=== PATIENT | male | born 1970 | race Two or more races ===

== ENCOUNTER 2022-01-15 12:20 | Inpatient (IN) | payer MEDICAID ==
[~2022-01-15] VITALS: Ht 180.3 cm; Wt 151.5 kg
--- NOTE | 2022-01-15 12:30 | NUR ---
BIBRA78 HOME FOR NOTED SEIZURE LIKE ACTIVITY BY BROTHER 20 MINS CONSTRUCTION CONTROLLER. +ORAL TRAUMA, +INCONTENENCE. BG 114 CONSTRUCTION CONTROLLER
--- NOTE | 2022-01-15 12:37 | NUR ---
AT [facility] JANUSZ FLOYDAL
--- NOTE | 2022-01-15 12:48 | NUR ---
ekg performed by emt
--- NOTE | 2022-01-15 12:48 | NUR ---
recyclable products sorter at bedside
[2022-01-15] MEDS ORDERED: POTA-88 PO (12:54)
[2022-01-15] MEDS ORDERED: FURO40TA5 PO (12:54)
[2022-01-15] MEDS ORDERED: LOSA25TA27 PO (12:54)
[2022-01-15] MEDS ORDERED: CARV12.52 PO (12:54)
[2022-01-15] MEDS ORDERED: SPIR25TA6 PO (12:54)
[2022-01-15 12:58] LABS: BASOPHILS # (AUTO) 0.1 K/uL (0.0-0.2); BASOPHILS % (AUTO) 1.1 % (0.0-2.0); EOSINOPHILS % (AUTO) 1.5 % (0.0-6.0); HEMATOCRIT 42 % (39-51); HEMOGLOBIN 14.5 g/dL (13.5-17.5); LYMPHOCYTES # (AUTO) 0.7 K/uL (0.8-4.8); LYMPHOCYTES % (AUTO) 10.8 % (20.0-44.0); MEAN CORPUSCULAR HGB CONC 35 g/dl (31.0-36.0); MEAN CORPUSCULAR VOLUME 108 fL (80-96); MONOCYTES % (AUTO) 14.4 % (2.0-12.0); NEUTROPHILS # (AUTO) 4.9 K/uL (1.8-8.9); NEUTROPHILS % (AUTO) 72.2 % (43.0-81.0); PLATELET COUNT (AUTO) 128 K/uL (150-450); RED BLOOD CELL COUNT(AUTO) 3.88 MIL/uL (4.5-6.0); WHITE BLOOD COUNT (AUTO) 6.8 K/uL (4.3-11.0)
[2022-01-15 13:17] LABS: CALCIUM, SERUM 8.5 mg/dL (8.5-10.1); CARBON DIOXIDE 28 mmol/L (21-32); CHLORIDE 97 mmol/L (98-107); CREATININE 1.2 mg/dL (0.6-1.3); GLUCOSE 106 mg/dL (74-106); POTASSIUM 3.8 mmol/L (3.5-5.1); SODIUM SERUM 136 mmol/L (136-145); UREA NITROGEN, BLOOD 8 mg/dL (7-18)
[2022-01-15 13:20] LABS: ALANINE AMINOTRANSFERASE 93 U/L (12-78); ALBUMIN 3.4 g/dL (3.4-5.0); ALKALINE PHOSPHATASE 94 U/L (46-116); ASPARTATE AMINOTRANSFERASE 134 U/L (15-37); BILIRUBIN,DIRECT 1.2 mg/dL (0.0-0.2); BILIRUBIN,TOTAL 2.9 mg/dL (0.2-1.0)
[2022-01-15 13:21] LABS: TOTAL PROTEIN, SERUM 7.6 g/dL (6.4-8.2)
[2022-01-15] MEDS ORDERED: FUROSEMIDE 20 MG/2 ML VIAL IV ONE (14:00)
[2022-01-15] MEDS ORDERED: LORAZEPAM INJ 2 MG/ML VIAL IV ONE (14:00)
--- NOTE | 2022-01-15 14:00 | NUR ---
IV LINE ACCIDENTALY PULLED OUT BY PATIENT
--- NOTE | 2022-01-15 14:01 | NUR ---
BG = 108
[2022-01-15] MEDS ORDERED: ACETAMINOPHEN 325 MG TABLET PO PRN (14:30)
[2022-01-15] MEDS ORDERED: Z GUARD REMEDY 4 OZ OINT TP PRN (14:30)
[2022-01-15] MEDS ORDERED: ONDANSETRON HCL/PF 4 MG/2 ML VIAL IVP PRN (14:30)
[2022-01-15] MEDS ORDERED: IV NS 0.9% 1,000 ML IV PRN (14:30)
--- NOTE | 2022-01-15 14:42 | NUR ---
COVID SWAB TAKEN SENT TO LAB
[2022-01-15] MEDS ORDERED: FUROSEMIDE 20 MG/2 ML VIAL ONE (14:46)
[2022-01-15] MEDS ORDERED: LORAZEPAM INJ 2 MG/ML VIAL ONE (14:47)
--- NOTE | 2022-01-15 15:19 | NUR ---
GOT BED ASSIGNMENT 326-1 PENDING COVID RESULT.
--- NOTE | 2022-01-15 16:32 | NUR ---
REPORT GIVEN TO ANGELO MARCUM
[2022-01-15] MEDS ORDERED: FUROSEMIDE 40 MG TABLET PO SCH (17:00)
[2022-01-15] MEDS ORDERED: ENOXAPARIN SODIUM 40 MG/0.4 ML DISP.SYRIN SQ SCH (17:30)
--- NOTE | 2022-01-15 17:57 | NUR ---
MOVED TO ROOM ASSIGNED
[2022-01-15] MEDS: FUROSEMIDE 40 MG/4 ML VIAL IV SCH (18:15)
--- NOTE | 2022-01-15 19:20 | NUR ---
MERCHANDISER SEASONAL OPENING NOTES RECEIVED PT, SITTING IN BED. A/O X4. ABLE TO MAKE NEEDS KNOWN. ON O2 2LPM VIA NC WITH MILD SOB ON EXERTION. IV ACCESS NOTED ON LAC G#20 INTACT AND PATENT. ON TELE MONITOR WITH CURRENT READING OF SR WITH BBB'S AND V-PACING, HR 97, NO C/O CARDIAC DISTRESS VOICED AT THIS TIME. SEIZURE PRECAUTIONS IMPLEMENTED: PADDED RAILS, SETUP SUCTIONING. SAFETY PRECAUTIONS IMPLEMENTED: BED IN LOWEST LOCKED POSITION, SIDE RAILS UP X3 AND PADDED, BED ALARM ON, CALL LIGHT AND TRAY TABLE PLACED WITHIN EASY REACH OF PT. WILL CONTINUE TO MONITOR AND ASSIST.
--- NOTE | 2022-01-15 19:23 | NUR ---
TELE- ORE MIXER NOTES PT ADMITTED TO UNIT VIA [facility] AT 1745 WITH DIAGNOSIS OF POSSIBLE SEIZURE. PT IS A/O X4. ABLE TO MAKE NEEDS KNOWN WITH C/O OF MILD SOB ON EXERTION, PT PLACED ON 02 VIA N/C AT 2LPM WITH RELIEF. PT ORIENTED TO STAFF AND ROOM. V/S TAKEN AND RECORDED. PHOTOS OF SKIN ISSUES TAKEN AND FILED ON HIS CHART. IV ACCESS NOTED ON LAC G#20 INTACT AND PATENT. PT PLACED ON EXTERNAL CORPORATE TRAVEL AGENT WITH CURRENT READING OF SR WITH BBB'S AND V-PACING, HR 97, NO C/O CARDIAC DISTRESS VOICED AT THIS TIME. LUNGS CLEAR ON AUSCULTATION. ABDOMEN SOFT, NON-TENDER WITH POSITIVE BOWEL SOUNDS PRESENT ON FOUR QUADRANTS. SEIZURE AND ALL SAFETY PRECAUTIONS IMPLEMENTED: BED IN LOWEST LOCKED POSITION, SIDE RAILS UP X2 AND PADDED, CALL LIGHT AND TRAY TABLE PLACED WITHIN W/I EASY REACH OF PT. ENDORSE FABIAN TO CRYSTALIZER TENDER JOSSUE HINDS.
[2022-01-15 20:00] VITALS: BP 154/93
[2022-01-15] MEDS: CARVEDILOL 12.5 MG TABLET PO SCH (20:39)
--- NOTE | 2022-01-15 22:00 | NUR ---
RN NOTE PT REQUESTING MEDICATION FOR SLEEP AND ANXIETY. MENTIONS HE TOOK A MEDICATION IN ER EARLIER. ASKED PT FOR ANY HOME MEDICATIONS FOR SLEEP/ANXIETY AND MENTIONS CLONAZEPAM 1-2MG. MEDICATION PLACED IN HOME MEDS LIST. DR MARTINEZ NOTIFIED IF HE WANTS TO ORDER ANY NEW MEDICATION. RESPONDED WITH AN ORDER FOR RESTORIL 15 MG PO QHS PRN.
[2022-01-15] MEDS ORDERED: CLON0.5T4 PO (22:58)
[2022-01-15] MEDS: TEMAZEPAM 15 MG CAPSULE PO PRN (23:43)
[2022-01-16] VITALS: BP 128/79
[2022-01-16 04:00] VITALS: BP 137/87
--- NOTE | 2022-01-16 04:30 | NUR ---
RN NOTE UPON ROUNDING PATIENT STATED THAT HE FEELS DIZZY WHEN HE'S CHANGING POSITION BUT MORE WHEN HE'S STANDING UP, PATIENT STATES IT IS ONLY BRIEF AND GOES AWAY. ORTHOSTATIC BP SUPINE 136/78 HR 90 SITTING 152/83 HR 102 STANDING 147/79 HR 108
[2022-01-16 06:20] LABS: CALCIUM, SERUM 8.2 mg/dL (8.5-10.1); CREATININE 1.1 mg/dL (0.6-1.3); POTASSIUM 3.4 mmol/L (3.5-5.1)
[2022-01-16 06:25] LABS: BASOPHILS # (AUTO) 0.1 K/uL (0.0-0.2); EOSINOPHILS % (AUTO) 1.9 % (0.0-6.0); HEMATOCRIT 41 % (39-51); HEMOGLOBIN 14.1 g/dL (13.5-17.5); LYMPHOCYTES # (AUTO) 1.3 K/uL (0.8-4.8); LYMPHOCYTES % (AUTO) 17.8 % (20.0-44.0); MEAN CORPUSCULAR HGB CONC 35 g/dl (31.0-36.0); MEAN CORPUSCULAR VOLUME 108 fL (80-96); MONOCYTES # (AUTO) 1.3 K/uL (0.1-1.30); MONOCYTES % (AUTO) 17.2 % (2.0-12.0); NEUTROPHILS # (AUTO) 4.7 K/uL (1.8-8.9); NEUTROPHILS % (AUTO) 62.1 % (43.0-81.0); PLATELET COUNT (AUTO) 123 K/uL (150-450); RED BLOOD CELL COUNT(AUTO) 3.75 MIL/uL (4.5-6.0); WHITE BLOOD COUNT (AUTO) 7.5 K/uL (4.3-11.0)
--- NOTE | 2022-01-16 07:25 | NUR ---
CLAIM ANALYST CLOSING NOTES PT LYING IN BED, ASLEEP AT THIS TMIE. A/O X4. ABLE TO MAKE NEEDS KNOWN. STABLE ON O2 2LPM VIA NC WITH MILD SOB ON EXERTION. IV ACCESS NOTED ON LAC G#20 INTACT AND PATENT. ON TELE MONITOR WITH CURRENT READING OF SR WITH V-PACING, HR 130, NO C/O CARDIAC DISTRESS VOICED AT THIS TIME. PT ASKED FOR SLEEP AND ANTI-ANXIETY MEDICATION. MD NOTIFIED AND ORDERED RESTORIL 15 MG PO QHS PRN. PT TESTED NEGATIVE FOR ORTHOSTATIC HYPOTENSION. ALL CARE PROVIDED AND ADMINISTERED MEDICATIONS TOLERATED WELL. SEIZURE PRECAUTIONS MAINTAINED: PADDED RAILS, SETUP SUCTIONING. SAFETY PRECAUTIONS MAINTAINED: BED IN LOWEST LOCKED POSITION, SIDE RAILS UP X3 AND PADDED, BED ALARM ON, CALL LIGHT AND TRAY TABLE PLACED WITHIN EASY REACH OF PT. WILL ENDORSE FABIAN TO LADLE REPAIRER NURSE.
--- NOTE | 2022-01-16 07:26 | NUR ---
RN OPENING NOTE RECEIVED PATIENT IN BED AWAKE, A/O X4, VERBALLY RESPONSIVE. NO SIGNS OF ACUTE DISTRESS NOTED. ON O2 @ 3LPM VIA N/C, DENIES SOB. NO CARDIAC DISTRESS NOTED. WITH IV ACCESS ON LEFT AC #2OG, INTACT AND PATENT, SALINE LOCKED. SAFETY MEASURE IN PLACE, BED IN LOWEST AND LOCKED POSITION, SIDE RAILS UP X2, CALL LIGHT PLACED WITHIN EASY REACH. WILL CONTINUE TO MONITOR PATIENT.
--- NOTE | 2022-01-16 07:40 | NUR ---
RN NOTE PATIENT NOTED WITH PSVT, HR @140-150, DR. JUSTIN AWARE, WITH WIN FOR STAT EKG, MALIK OUT.
[2022-01-16 08:00] VITALS: BP_SYST 124; BP_SYST 140; BP_DIAS 70; BP_DIAS 89
[2022-01-16] MEDS: FUROSEMIDE 40 MG/4 ML VIAL IV SCH ×3 (08:24→17:27)
[2022-01-16] MEDS: CARVEDILOL 12.5 MG TABLET PO SCH ×2 (08:28→21:18)
[2022-01-16] MEDS: SPIRONOLACTONE 25 MG TABLET PO SCH (08:28)
--- NOTE | 2022-01-16 08:33 | NUR ---
WOUND CARE CONSULT: PT SITTING UP AT EDGE OF BED AND STATES DOES NOT NEED SKIN ASSESSMENT. PT STATES THAT HE SOMETIMES PICKS AT HIS SKIN AND THAT HE HAS DRY SCABS ONLY. WILL SEE PRN.
--- NOTE | 2022-01-16 08:50 | NUR ---
RN NOTE PATIENT TRANSFERRED TO [facility] RM 119-2. REPORT GIVEN TO JOSSUE ORTIZ. ALL BELONGINGS SENT WITH PATIENT.
--- NOTE | 2022-01-16 08:55 | NUR ---
TELE/[facility] ADMISSION NOTES: RECEIVED PATIENT VIA GURNEY, ALERT, ORIENTED X 4. NO C/O CHEST PAIN OR DISCOMFORT NOTED AT THIS TIME. BREATHING EVEN AND UNLABORED, NO SOB NOTED. ON OXYGEN @ 3L/MIN VIA N/C WITH OXYGEN SATURATION OF 96%. PATIENT WAS PLACED ON TELE MONITOR WITH HR OF 144. PATIENT WAS ASSISTED IN BED AND KEPT COMFORTABLE. BED LOCKED AND IN LOWEST POSITION. CALL LIGHT WITHIN REACH. EXPLAINED THE IMPORTANCE OF USING THE CALL LIGHT WHEN HE NEEDS ASSISTANCE. V/S FOLLOWS: TEMP 97.9, RR 24, BP 148/79. PATIENT WAS NOTED TO HAVE A LEAKING IV SITE ON LEFT UPPER ARM UPON ADMISSION. WILL TRY TO PLACE ANOTHER IV SITE FOR THE PATIENT SINCE HE IS ADMITTED TO TELEMETRY FOR AMIODARONE DRIP. WILL CONTINUE TO MONITOR PATIENT THROUGHOUT SHIFT.
[2022-01-16] MEDS ORDERED: AMIODARONE 150 MG in IV D5W 100 ML IV ONE (09:00)
[2022-01-16] MEDS ORDERED: LOSARTAN POTASSIUM 25 MG TABLET PO SCH (09:00)
[2022-01-16 09:18] LABS: THYROID STIMULATING HORMONE 2.645 uIU/mL (0.358-3.74)
[2022-01-16 09:29] LABS: PHOSPHORUS 4.9 mg/dL (2.5-4.9)
--- NOTE | 2022-01-16 09:56 | NUR ---
CALLED LIVING SUPERVISOR EARLIER AND SENT ANOTHER NURSE TO PLACE IV LINE ON PATIENT'S LEFT HAND # 20 G, IV SITE INTACT, FLUSHES WELL.
--- NOTE | 2022-01-16 10:15 | NUR ---
LOADING DOSE OF AMLODIPINE WAS GIVEN TO THE PATIENT, STAYED WITH THE PATIENT AND HAS NO C/O PAIN OR DISCOMFORT, NO ADVERSE REACTION NOTED
[2022-01-16] MEDS: POTASSIUM CHLORIDE 20 MEQ TAB.PRT.SR PO SCH ×3 (10:20→12:34)
[2022-01-16] MEDS: APIXABAN 5 MG TABLET PO SCH ×2 (10:22→17:28)
[2022-01-16] MEDS: AMIODARONE 450 MG in IV D5W 241 ML IV PRN ×2 (10:34→16:22)
--- NOTE | 2022-01-16 10:34 | NUR ---
AMIODARONE DRIP STARTED FOR THE PATIENT ORDERED. BP 121/58 PULSE 100
[2022-01-16 12:00] VITALS: BP 93/55
--- NOTE | 2022-01-16 12:34 | NUR ---
PATIENT WAS NOTED TO HAVE HIS IV ACCIDENTALLY PULLED OUT. CALLED NURSING COMMERCIAL SALES CONSULTANT FOR ANOTHER IV PLACEMENT.
--- NOTE | 2022-01-16 13:00 | NUR ---
NEW IV SITE WAS PLACED ON PATIENT'S SAME HAND, RIGHT HAND # 20, SECURED IV SITE AND INFORMED PATIENT TO PLEASE USE THE CALL LIGHT WHENEVER HE NEEDS ASSISTANCE. PATIENT AGREED AND UNDERSTOOD.
[2022-01-16 16:00] VITALS: BP 154/79
[2022-01-16] MEDS ORDERED: CARVEDILOL 12.5 MG TABLET PO STA (16:58)
--- NOTE | 2022-01-16 17:00 | NUR ---
[facility] RN NOTE SPOKE WITH DR JUSTIN NOTIFIED THAT PATIENT HAS STILL AFB ON MONITOR HR 155-160 ORDERED COREG 50 MG PO NOW SAND HOLD COZAAR , ORDER CARRIED OUT
[2022-01-16 17:15] LABS: BASOPHILS % (MANUAL) 0 % (0.0-2.0); EOSINOPHILS % (MANUAL) 2 % (0-4); LYMPHOCYTES % (MANUAL) 15 % (16-48); MONOCYTES % (MANUAL) 13 % (0-11.0); NEUTROPHILS % (MANUAL) 70 (42-76)
--- NOTE | 2022-01-16 18:05 | NUR ---
BLADDER SCAN PERFORMED, PATIENT ONLY HAS 60 ML OF RESIDUAL URINE, PATIENT HAS NO C/O URINARY DISCOMFORT AT THIS TIME. WILL CONTINUE TO MONITOR PATIENT. PATIENT ALSO NOTED TO HAVE ST ON TELE MONITOR WITH HR OF 128 WITH OCCASIONAL PACING. PATINE HAS NO C/O CHEST PAIN OR DISCOMFORT.
--- NOTE | 2022-01-16 18:59 | NUR ---
RN [facility] CLOSING NOTES: PATIENT IN BED AWAKE, ALERT ORIENTED X 4. NO C/O PAIN OR DISCOMFORT NOTED AT THIS TIME. ON ST WITH HR OF 122. HOB KEPT SLIGHTLY ELEVATED. ON AMIODARONE DRIP AT 0.5MG/MIN = 20 ML/HR. ON SR IV SITE INTACT ON RIGHT HAND, NO S/S INFILTRATION NOTED. BED LOCKED AND IN LOWEST POSITION. CALL LIGHT WITHIN REACH. NO C/O CHEST PAIN OR DISCOMFORT NOTED THROUGHOUT SHIFT. ALL NEEDS MET AND ANTICIPATED. WILL ENDORSE TO INCOMING SHIFT FOR CONTINUITY OF CARE.
--- NOTE | 2022-01-16 19:30 | NUR ---
PATIENT IN BED AWAKE, ALERT ORIENTED X 4. NO C/O PAIN OR DISCOMFORT NOTED AT THIS TIME. ON TELE MONITOR WITH HR OF 92. HOB KEPT SLIGHTLY ELEVATED. ON AMIODARONE DRIP AT 0.5MG/MIN = 20 ML/HR. ON SR IV SITE INTACT ON RIGHT HAND. WITH URINAL AT BEDSIDE. SAFETY MEASURES IN PLACE. BED LOCKED AND IN LOWEST POSITION. CALL LIGHT WITHIN REACH. WILL CONTINUE PLAN OF CARE.
[2022-01-16 20:00] VITALS: BP 140/61
[2022-01-16] MEDS: TEMAZEPAM 15 MG CAPSULE PO PRN (22:27)
[2022-01-17] VITALS: BP 114/87
[2022-01-17] MEDS: AMIODARONE 450 MG in IV D5W 241 ML IV PRN (02:37)
[2022-01-17 04:00] VITALS: BP 127/79
--- NOTE | 2022-01-17 06:45 | NUR ---
PATIENT IN BED ASLEEP, A/OX4. WITH NC AT 3LPM, TOLERATING WELL. NO RESPIRATORY DISTRESS NOTED, NO SIGNS OF PAIN/DISCOMFORT. IV SITE ON RT HAND G#20, PATENT AND FLUSHING WELL. INFUSING AMIODARONE 0.5MG PER MIN. STARTED AT 0500 ON 01/16/2022 18 HRS WILL END AT 11AM ON 01/17/2022. NO S/S OF INFILTRATION. DUE MEDS AND PRN MEDS GIVEN ORDERED. NEEDS ATTENDED. ALL SAFETY MEASURES MAINTAINED. HOB SLIGHTLY ELEVATED. BED LOCKED AND IN LOWEST POSITION. CALL LIGHT WITHIN REACH, SIDE RAILS UP X2. BED ALARM ON. WILL ENDORSE TO NEXT NURSE ON DUTY FOR CONTINUITY OF CARE.
--- NOTE | 2022-01-17 07:45 | NUR ---
RN notes Received patient in bed, resting without active complaint. Telemetry showed SR 83/min with pacing beat over ventricle. On 3L oxygen via NC,Spo2 100%, RR 18/min. IV site over right hand is dry and intact, with amiodarone running at 0.5mg/min. Call thapa is placed within reach. Bed is padded, locked and placed in the lowest position. All safety measures are implemented. Will continue care and monitoring.
[2022-01-17 08:00] VITALS: BP 153/84
[2022-01-17 08:07] LABS: *SPE A/G RATIO 1.1 (0.7-1.7); *SPE ALPHA-1-GLOBULIN 0.3 g/dL (0.0-0.4); *SPE ALPHA-2-GLOBULIN 0.5 g/dL (0.4-1.0); *SPE BETA GLOBULIN 1.2 g/dL (0.7-1.3); *SPE M-SPIKE Not Observed g/dL (Not Observed)
[2022-01-17 08:25] LABS: BASOPHILS # (AUTO) 0.1 K/uL (0.0-0.2); BASOPHILS % (AUTO) 0.7 % (0.0-2.0); EOSINOPHILS % (AUTO) 4.2 % (0.0-6.0); HEMATOCRIT 40 % (39-51); HEMOGLOBIN 13.7 g/dL (13.5-17.5); LYMPHOCYTES # (AUTO) 1.2 K/uL (0.8-4.8); LYMPHOCYTES % (AUTO) 16.9 % (20.0-44.0); MEAN CORPUSCULAR HGB CONC 34 g/dl (31.0-36.0); MEAN CORPUSCULAR VOLUME 109 fL (80-96); MONOCYTES # (AUTO) 1.2 K/uL (0.1-1.30); MONOCYTES % (AUTO) 16.3 % (2.0-12.0); NEUTROPHILS # (AUTO) 4.5 K/uL (1.8-8.9); NEUTROPHILS % (AUTO) 61.9 % (43.0-81.0); PLATELET COUNT (AUTO) 129 K/uL (150-450); RED BLOOD CELL COUNT(AUTO) 3.65 MIL/uL (4.5-6.0); WHITE BLOOD COUNT (AUTO) 7.3 K/uL (4.3-11.0)
[2022-01-17 08:41] LABS: MAGNESIUM 2.1 mg/dL (1.8-2.4); PHOSPHORUS 4.4 mg/dL (2.5-4.9)
[2022-01-17] MEDS: CARVEDILOL 12.5 MG TABLET PO SCH ×2 (09:03→21:08)
[2022-01-17] MEDS: APIXABAN 5 MG TABLET PO SCH ×2 (09:04→16:54)
[2022-01-17] MEDS: SPIRONOLACTONE 25 MG TABLET PO SCH (09:04)
[2022-01-17] MEDS ORDERED: POTASSIUM CHLORIDE 20 MEQ TAB.PRT.SR PO ONE (10:00)
--- NOTE | 2022-01-17 11:00 | NUR ---
RN notes Amiodarone drip stopped, no signs of infiltration over the IV site. Tailed down oxygen to 2L via NC, SpO2 96%,RR 20/min.
[2022-01-17 12:00] VITALS: BP 148/80
[2022-01-17 12:40] LABS: EOSINOPHILS % (MANUAL) 5 % (0-4); LYMPHOCYTES % (MANUAL) 19 % (16-48); MONOCYTES % (MANUAL) 10 % (0-11.0); NEUTROPHILS % (MANUAL) 66 (42-76)
[2022-01-17 16:00] VITALS: BP 110/73
--- NOTE | 2022-01-17 16:25 | NUR ---
RN notes IV cordarone stopped at 11:00 today without the order for oral cordarone. Double-confirm with Dr. Guerrero that patient would not be receiving oral cordarone due to his impaired liver function.
--- NOTE | 2022-01-17 17:24 | NUR ---
RN note Patient reported SOB (Spo2 96% RA, RR 19/min) and requested 2L oxygen via NC. Reassurance is given and re-started oxygen therapy.
--- NOTE | 2022-01-17 18:49 | NUR ---
RN notes Patient is resting in bed without active complaint. Telemetry showed SR HR 91/min with ventricular pacing beats. Subjective SOB with 2L oxygen given via NC. Bed is padded, locked and placed in the lowest position. All safety measures have been implemented. Will endorse PM RN to continue monitoring and care.
--- NOTE | 2022-01-17 19:20 | NUR ---
ELECTRONIC GAMING DEVICE SUPERVISOR OPENING NOTES: RECEIVED PT IN BED ASLEEP, EASILY AROUSABLE, A/O X4, ON 2L O2 VIA NC, TOLERATING WELL, NO S/S OF DISTRESS, TELE MONITOR READING SR HR 87 WITH V PACING, IV ACCESS RHAND #2OG. PT ABLE TO MAKE NEEDS KNOWN. ALL SAFETY PRECAUTIONS IN PLACE. BED LOCKED AND AT LOWEST LEVEL. X2 RAILS UP. CALL LIGHT WITHIN REACH.WILL CONTINUE TO MONITOR THROUGH OUT SHIFT.
[2022-01-17 20:00] VITALS: BP 117/69
[2022-01-18] VITALS: BP_SYST 109; BP_SYST 153; BP_DIAS 67; BP_DIAS 90
--- NOTE | 2022-01-18 01:00 | NUR ---
RT NOTE PT REC'D ON 2LNC. PT AWAKE AND ALERT. PT SHOWS NO SIGNS OF RESP DISTRESS OR SOB. PT PLACED ON NOTED CPAP SETTINGS PER MD ORDERS. ALARMS ARE SET AND AUDIBLE. AMBU BAG AT BEDSIDE. WILL CONTINUE TO MONITOR CLOESLY. Addendum: 01/18/22 at 0102 by DANICA MAHAN RT Amended: Links added.
[2022-01-18 04:00] VITALS: BP 119/66
--- NOTE | 2022-01-18 06:53 | NUR ---
IRONING PLEATER CLOSING NOTES: PT IN BED AWAKE, A/O X4, ON 2L O2 VIA NC, TOLERATING WELL, NO S/S OF DISTRESS, TELE MONITOR READING SR HR 79 WITH V PACING, IV ACCESS RHAND #2OG. PT ABLE TO MAKE NEEDS KNOWN.ALL DUE MEDS GIVEN.ALL SAFETY PRECAUTIONS IN PLACE. BED LOCKED AND AT LOWEST LEVEL. X2 RAILS UP. CALL LIGHT WITHIN REACH.WILL ENDORSE TO MORNING SHIFT FOR FABIAN.
[2022-01-18 08:00] VITALS: BP 143/97
[2022-01-18] MEDS ORDERED: AMIODARONE HCL 200 MG TABLET PO SCH (09:00)
[2022-01-18] MEDS ORDERED: APIX5TAB PO (09:17)
[2022-01-18] MEDS ORDERED: AMIO200T7 PO (09:17)
[2022-01-18] MEDS ORDERED: CARV12.52 PO (09:17)
[2022-01-18] MEDS ORDERED: AMIO200T5 PO (09:22)
[2022-01-18] MEDS: CARVEDILOL 12.5 MG TABLET PO SCH (09:32)
[2022-01-18] MEDS: APIXABAN 5 MG TABLET PO SCH (09:33)
[2022-01-18 09:34] VITALS: BP 143/97
[2022-01-18] MEDS: SPIRONOLACTONE 25 MG TABLET PO SCH (09:34)
[2022-01-18 10:23] LABS: ALBUMIN 3.2 g/dL (3.4-5.0); BILIRUBIN,TOTAL 2.4 mg/dL (0.2-1.0); CALCIUM, SERUM 8.9 mg/dL (8.5-10.1); POTASSIUM 4.2 mmol/L (3.5-5.1); TOTAL PROTEIN, SERUM 7.5 g/dL (6.4-8.2)
--- NOTE | 2022-01-18 11:43 | NUR ---
RN NOTE PATIENT WAS DISCHARGED HOME IN STABLE CONDITION WITH BROTHER VIJI. IV ACCESS REMOVED WITH CATHETER INTACT. TELE MONITOR REMOVED, PATIENT LEFT ROOM IN WHEEL WITH DINO WITH DISCHARGE PACKET AND VERBALIZED UNDERSTANDING OF DISCHARGE INSTRUCTIONS.
== END 2022-01-18 11:24 | disposition home or self-care (01) | DRG 53 ==
LOC: ER 12:29 → TELE 17:23 → TELE-TD 01-16 09:10 → TELE1 01-17 11:47
PROVIDERS: ADMIT Internal Medicine; ATTEND Internal Medicine
DX: R56.9 Unspecified convulsions (principal); I50.23 Acute on chronic systolic (congestive) heart failure; D69.6 Thrombocytopenia, unspecified; I42.9 Cardiomyopathy, unspecified; I47.1 Supraventricular tachycardia; K70.10 Alcoholic hepatitis without ascites; K76.0 Fatty (change of) liver, not elsewhere classified; I11.0 Hypertensive heart disease with heart failure; F10.139 Alcohol abuse with withdrawal, unspecified; E66.01 Morbid (severe) obesity due to excess calories; Z68.42 Body mass index [BMI] 45.0-49.9, adult; G47.33 Obstructive sleep apnea (adult) (pediatric); I48.0 Paroxysmal atrial fibrillation
CPT/HCPCS: 36415; 70450-TC; 71045-TC; 76700-TC; 80048-TC; 80053-TC; 80076-TC; 82962-TC; 83735-TC; 84100-TC; 84155; 84165; 84439-TC; 84443-TC; 84484-TC; 85025-TC; 85730-TC; 87081-TC; 94799-TC; A4349; C9803; G0378; J0282; J1650; J1940; J2060; J2405; J7060

== ENCOUNTER 2022-05-11 06:16 | Inpatient (IN) | payer MEDICAID ==
[~2022-05-11] VITALS: Ht 177.8 cm; Wt 100.7 kg
[~2022-05-11 06:16] MED LIST: AMIO200T5 PO; AMIO200T7 PO; APIX5TAB PO; CARV12.52 PO; CLON0.5T4 PO; FURO40TA5 PO; LOSA25TA27 PO; POTA-88 PO; SPIR25TA6 PO
--- NOTE | 2022-05-11 06:16 | NUR ---
BB RA FROM HOME FOR WITNESSED SEIZURE. PT A/OX3; POST ICTAL. TOLERATING R/A WELL WITH NO RESP DISTRESS. CONNECTED PT TO POX AND MONITOR. SAFETY SEIZURE PROTOCOL MEASURES IN PLACE.
--- NOTE | 2022-05-11 06:23 | NUR ---
DR LAW GREENFIELD AT PT'S BEDSIDE FOR EVAL
[2022-05-11] MEDS ORDERED: LEVETIRACETAM (500MG) 500 MG in IV NS 0.9% 100 ML IV ONE (06:30)
[2022-05-11] MEDS ORDERED: IV NS 0.9% 1,000 ML BAG IV ONE (06:30)
[2022-05-11] MEDS ORDERED: CHLORDIAZEPOXIDE HCL 25 MG CAPSULE PO ONE (06:30)
[2022-05-11] MEDS ORDERED: LEVETIRACETAM (500MG) 500 MG/5 ML VIAL IV ONE (06:31)
--- NOTE | 2022-05-11 06:31 | NUR ---
RAC #20 S/L BLOOD COLLECTED AND SENT TO LAB
--- NOTE | 2022-05-11 06:37 | NUR ---
PROVIDE PT WITH URINAL; AWAITING FOR URINE SAMPLE
--- NOTE | 2022-05-11 06:38 | NUR ---
CALLED PHARMACY; AWAITING FOR LIBRIUM TO BE DELIVERED
--- NOTE | 2022-05-11 06:39 | NUR ---
EKG BEING DONE
[2022-05-11] MEDS ORDERED: LORAZEPAM INJ 2 MG/ML VIAL ONE ×2 (06:47→07:40)
[2022-05-11] MEDS ORDERED: LORAZEPAM INJ 2 MG/ML VIAL IV ONE ×2 (07:00→07:30)
[2022-05-11] MEDS ORDERED: METOPROLOL TARTRATE INJ 5 MG/5 ML AMPUL ONE (07:01)
[2022-05-11 07:07] LABS: ALBUMIN 3.9 g/dL (3.4-5.0); BILIRUBIN,DIRECT 3.3 mg/dL (0.0-0.2); CALCIUM, SERUM 8.9 mg/dL (8.5-10.1); CREATININE 1.6 mg/dL (0.6-1.3); TOTAL PROTEIN, SERUM 8.9 g/dL (6.4-8.2)
[2022-05-11 07:10] LABS: POTASSIUM 2.8 mmol/L (3.5-5.1)
--- NOTE | 2022-05-11 07:10 | NUR ---
CRITICAL LAB: POTASSIUM 2.[address] LAW GREENFIELD AWARE
--- NOTE | 2022-05-11 07:15 | NUR ---
COVID SWAB COLLECTED AND SENT TO LAB.
[2022-05-11] MEDS ORDERED: POTASSIUM CL. PREMIX PERIPHER. 50 ML ONE ×2 (07:17→08:58)
[2022-05-11] MEDS ORDERED: POTASSIUM CHLORIDE 20 MEQ TAB.PRT.SR PO ONE ×2 (07:18→07:30)
[2022-05-11] MEDS ORDERED: CARVEDILOL 12.5 MG TABLET ONE (07:18)
[2022-05-11] MEDS ORDERED: CARVEDILOL 6.25 MG TABLET PO ONE (07:30)
[2022-05-11] MEDS ORDERED: METOPROLOL TARTRATE INJ 5 MG/5 ML AMPUL IV ONE (07:30)
[2022-05-11] MEDS: POTASSIUM CL. PREMIX PERIPHER. 50 ML IV SCH ×2 (07:39→09:14)
[2022-05-11 07:48] LABS: BASOPHILS # (AUTO) 0.2 K/uL (0.0-0.2); EOSINOPHILS % (AUTO) 0.4 % (0.0-6.0); HEMATOCRIT 48 % (39-51); HEMOGLOBIN 16.5 g/dL (13.5-17.5); LYMPHOCYTES # (AUTO) 1.4 K/uL (0.8-4.8); LYMPHOCYTES % (AUTO) 14.5 % (20.0-44.0); MEAN CORPUSCULAR HGB CONC 34 g/dl (31.0-36.0); MEAN CORPUSCULAR VOLUME 109 fL (80-96); MONOCYTES # (AUTO) 1.3 K/uL (0.1-1.30); MONOCYTES % (AUTO) 13.5 % (2.0-12.0); NEUTROPHILS # (AUTO) 6.6 K/uL (1.8-8.9); NEUTROPHILS % (AUTO) 69.6 % (43.0-81.0); PLATELET COUNT (AUTO) 215 K/uL (150-450); RED BLOOD CELL COUNT(AUTO) 4.44 MIL/uL (4.5-6.0); WHITE BLOOD COUNT (AUTO) 9.5 K/uL (4.3-11.0)
--- NOTE | 2022-05-11 08:55 | NUR ---
URINE SAMPLE OBTAINED
--- NOTE | 2022-05-11 09:54 | NUR ---
CALLED NURSING SUP FOR TELE BED.
--- NOTE | 2022-05-11 09:55 | NUR ---
PAGED EPIC EXHIBIT TECHNICIAN
--- NOTE | 2022-05-11 10:05 | NUR ---
room 109 , admitting informed
[2022-05-11] MEDS ORDERED: MAG HYDROX/AL HYDROX/SIMETH 30 ML UDC PO PRN (10:30)
[2022-05-11] MEDS ORDERED: LORAZEPAM INJ 2 MG/ML VIAL IV PRN (10:30)
[2022-05-11] MEDS ORDERED: MAGNESIUM HYDROXIDE 30 ML UDC PO PRN (10:30)
[2022-05-11] MEDS ORDERED: ONDANSETRON HCL/PF 4 MG/2 ML VIAL IVP PRN (10:30)
[2022-05-11] MEDS ORDERED: Z GUARD REMEDY 4 OZ OINT TP PRN (10:30)
--- NOTE | 2022-05-11 10:42 | NUR ---
Onur botello in [facility] - 05/11/22 at 1042 by CATIA Report given to JOSSUE Hopper
--- NOTE | 2022-05-11 10:43 | NUR ---
Report given to JOSSUE Hopper
--- NOTE | 2022-05-11 10:59 | NUR ---
Patient transferred to 109-1, all care endorsed to JOSSUE Hopper
--- NOTE | 2022-05-11 11:00 | NUR ---
FRAME OPERATOR NOTE PATIENT WAS TRANSFERRED FRPM THE ER WITH PRIMARY DIAGNOSIS OF SEIZURES WITH HISTORY OF ALCOHOL ABUSE.PATIENT IS ON 2 L OD O2 VIA N/C , BREATHING NON LABORED , HAS IV ACSESS OF THE R WRIST 20 G , L WRIST 20 G , NO OPEN WOUNDS , BOTH ARMS SMALL ROUND BLACK DISCOLORATIONS, WOUND CONSULT ORDERED .BED IS AT LOWEST POSITION , SIDE RAILS ARE UP , CALL LIGHT WITHIN REACH ,WILL CONTIBNUE TO MONITOR.
[2022-05-11 11:59] VITALS: BP 145/75
[2022-05-11 15:00] VITALS: BP 138/75
[2022-05-11] MEDS: CHLORDIAZEPOXIDE HCL 25 MG CAPSULE PO SCH (16:18)
[2022-05-11] MEDS: ACETAMINOPHEN 325 MG TABLET PO PRN (16:18)
[2022-05-11] MEDS: APIXABAN 5 MG TABLET PO SCH (16:19)
--- NOTE | 2022-05-11 18:59 | NUR ---
RN CLOSING NOTE PAPER BAG MAKER NOTE PATIENT IS ALERT , ORIENTED TIMES 4 ,ON 2 L OF O2 VIA N/C , BREATHING NON LABORED , HAS IV ACCESS OF THE R WRIST 20 G , L WRIST 20 G , NO OPEN WOUNDS , ALL MEDICATIONS WERE ADMINISTERED .ALL NEEDS WERE MET .BED IS AT LOWEST POSITION , SIDE RAILS ARE UP , CALL LIGHT WITHIN REACH ,WILL ENDORSE TAG MACHINE OPERATOR NURSE TO FALLOW POC
--- NOTE | 2022-05-11 19:00 | NUR ---
RN OPENING NOTES PT IS ASLEEP. A/O X 4, ABLE TO MAKE NEEDS KNOWN. PACEMAKER IS PRESENT. PT IS ON 02 INHALATION VIA NASAL CANNULA @ 2LPM. 02 SAT 96%, TOLERATING WELL,BREATHING EVEN AND UNLABORED @THIS TIME. PT IV IS PRESENT ON LEFT ARM #18G, RUNNING NS @ 10MLS/HR, PATENT, INTACT AND FLUSHES WITH NO S & SX OF INFILTRATION @SITE NOTED. PT IS ON TELE MONITOR WITH CURRENT READING OF A-FIB. SAFETY MEASURES IS IN PLACE. BED AT ITS LOWEST AND LOCKED POSITION. SIDE RAILS UP X 2. BEDSIDE TABLE AND CALL LIGHT IS EASY REACH. BED ALARM IS ON. WILL CONTINUE TO MONITOR PT ACCORDINGLY.
[2022-05-11 19:03] VITALS: BP 140/75
[2022-05-11 20:54] VITALS: BP 126/72
[2022-05-11] MEDS: CARVEDILOL 12.5 MG TABLET PO SCH (21:07)
--- NOTE | 2022-05-11 21:30 | NUR ---
RT ROSEANN ON BEDSIDE FOR PT CPAP.
--- NOTE | 2022-05-11 22:01 | NUR ---
RECEIVED REPORT FR RT, ROSEANN THAT CPAP ON [address] PT O2 IS 30%, TOLERATING WELL. WILL CONTINUE TO MONITOR PATIENT.
--- NOTE | 2022-05-11 22:27 | NUR ---
RT NOTE PT REC'D ON 2LNC. PT AWAKE AND ALERT. PT SHOWS NO SIGNS OF RESP DISTRESS OR SOB. PT PLACED ON CPAP SETTINGS PER MD ORDERS. ALARMS ARE SET AND AUDIBLE. AMBU BAG AT BEDSIDE. CPAP PLUGGED INTO RED OUTLET. Addendum: 05/11/22 at 2228 by DANICA MAHAN RT Amended: Links added.
[2022-05-11 23:00] VITALS: BP 126/72
[2022-05-11 23:55] VITALS: BP 138/82
[2022-05-12 03:00] VITALS: BP 138/82
[2022-05-12] MEDS: ACETAMINOPHEN 325 MG TABLET PO PRN ×3 (03:40→21:14)
--- NOTE | 2022-05-12 03:43 | NUR ---
PT COMPLAINED OF PAIN IN THE LEG. PT REQUESTED TYLENOL. PT STATED PAIN IS 4. TYLENOL ADMINISTERED 650 MG ADMINISTERED @ 0340.
--- NOTE | 2022-05-12 05:27 | NUR ---
PT IS COMPLAINING OF CHEST PAIN. MESSAGE RHIANNA WARD. WAITING FOR REPLY. WILL CONTINUE TO FOLLOW UP.
--- NOTE | 2022-05-12 05:30 | NUR ---
PT IS REQUESTED TO BE PUT ON CPAP. RT ROSEANN INFORMED AND NOTIFIED.
--- NOTE | 2022-05-12 05:48 | NUR ---
RT WHITFIELD IN BEDSIDE @0530, CONNECTED THE CPAP TO PT. WILL CONTINUE TO MONTIOR PT.
[2022-05-12 06:52] LABS: ALBUMIN 3.1 g/dL (3.4-5.0); BILIRUBIN,DIRECT 3.8 mg/dL (0.0-0.2); BILIRUBIN,TOTAL 5.7 mg/dL (0.2-1.0); CALCIUM, SERUM 8.6 mg/dL (8.5-10.1); MAGNESIUM 2.2 mg/dL (1.8-2.4); PHOSPHORUS 3.2 mg/dL (2.5-4.9); POTASSIUM 3.1 mmol/L (3.5-5.1); TOTAL PROTEIN, SERUM 7.1 g/dL (6.4-8.2)
--- NOTE | 2022-05-12 06:58 | NUR ---
RN CLOSING NOTES PT IS SLEEPING COMFORTABLY IN BED. A/O X 4. RESPONSIVE AND FOLLOWS VERBAL COMMAND. PT IS ON CPAP 8 cmH2O, 30% , SAT IS 100%. NO S/SX OF RESPIRATORY DISTRESS NOTED. IV SITE ON LEFT ARM #18G, RUNNING NS @10MLS/HR, PATENT, INTACT AND FLUSHES WELL WITH NO S& SX OF INFILTRATION @ SITE NOTED. PT IS ON TELE MONITOR WITH CURRENT READING B-PACE BBB. PT 2X BM, DIAPER IS IN PLACE. PT IS KEPT CLEAN, DRY AND COMFORTABLE. ADMINISTERED ALL MEDICATIONS ACCORDINGLY PER MD'S ORDER. SAFETY MEASURES IS IN PLACE. BED IS AT ITS LOWEST AND LOCKED POSITION. SIDE RAILS UP X 2. BEDSIDE TABLE AND CALL LIGHT IS EASYREACH. BED ALARM IS ON. WILL ENDORSE TO THE NEXT SHIFT FOR CONTINUITY OF CARE.
[2022-05-12 07:00] VITALS: BP 116/71
--- NOTE | 2022-05-12 07:00 | NUR ---
Stat EKG completed, Results given to JOSSUE Hinojosa
[2022-05-12 07:13] LABS: BASOPHILS # (AUTO) 0.1 K/uL (0.0-0.2); BASOPHILS % (AUTO) 1.1 % (0.0-2.0); EOSINOPHILS % (AUTO) 2.7 % (0.0-6.0); HEMATOCRIT 41 % (39-51); HEMOGLOBIN 14.3 g/dL (13.5-17.5); LYMPHOCYTES # (AUTO) 0.9 K/uL (0.8-4.8); LYMPHOCYTES % (AUTO) 17.7 % (20.0-44.0); MEAN CORPUSCULAR HGB CONC 35 g/dl (31.0-36.0); MEAN CORPUSCULAR VOLUME 107 fL (80-96); MONOCYTES # (AUTO) 0.7 K/uL (0.1-1.30); MONOCYTES % (AUTO) 12.8 % (2.0-12.0); NEUTROPHILS # (AUTO) 3.4 K/uL (1.8-8.9); NEUTROPHILS % (AUTO) 65.7 % (43.0-81.0); PLATELET COUNT (AUTO) 127 K/uL (150-450); WHITE BLOOD COUNT (AUTO) 5.1 K/uL (4.3-11.0)
--- NOTE | 2022-05-12 07:17 | NUR ---
INFORMED RHIANNA WARD RE: EKG STAT RESULT
[2022-05-12] MEDS: POTASSIUM CL. PREMIX PERIPHER. 50 ML IV SCH ×4 (07:32→11:09)
[2022-05-12] MEDS: THIAMINE HCL 100 MG TABLET PO SCH (08:17)
[2022-05-12] MEDS: SPIRONOLACTONE 25 MG TABLET PO SCH (08:17)
[2022-05-12] MEDS: CHLORDIAZEPOXIDE HCL 25 MG CAPSULE PO SCH ×2 (08:17→16:15)
[2022-05-12] MEDS: FOLIC ACID 1 MG TABLET PO SCH (08:18)
[2022-05-12] MEDS: LOSARTAN POTASSIUM 25 MG TABLET PO SCH (08:18)
[2022-05-12] MEDS: CARVEDILOL 12.5 MG TABLET PO SCH ×2 (08:18→21:09)
[2022-05-12] MEDS: AMIODARONE HCL 200 MG TABLET PO SCH (08:20)
[2022-05-12] MEDS: APIXABAN 5 MG TABLET PO SCH ×2 (08:21→16:15)
--- NOTE | 2022-05-12 10:18 | NUR ---
TYLENOL 650MG GIVEN DUE TO COMPLAINT OF BILATERAL LEG PAIN 09/03.
[2022-05-12 11:00] VITALS: BP 144/78
[2022-05-12 16:00] VITALS: BP 113/65
--- NOTE | 2022-05-12 18:46 | NUR ---
CLOSING NOTES PT IS SLEEPING COMFORTABLY IN BED. A/O X 4. RESPONSIVE AND FOLLOWS VERBAL COMMAND, 02 SAT IS 100%. NO S/SX OF RESPIRATORY DISTRESS NOTED. IV SITE ON LEFT ARM #18G, RUNNING NS @10MLS/HR, PATENT, INTACT AND FLUSHES WELL WITH NO S& SX OF INFILTRATION @ SITE NOTED. PT IS ON TELE MONITOR WITH CURRENT READING B-PACE BBB. DIAPER IS IN PLACE. PT IS KEPT CLEAN, DRY AND COMFORTABLE. ADMINISTERED ALL MEDICATIONS ACCORDINGLY PER MD'S ORDER. SAFETY MEASURES IS IN PLACE. BED IS AT ITS LOWEST AND LOCKED POSITION. SIDE RAILS UP X 2. BEDSIDE TABLE AND CALL LIGHT IS EASYREACH. BED ALARM IS ON. WILL ENDORSE TO THE NEXT SHIFT FOR CONTINUITY OF CARE.
--- NOTE | 2022-05-12 19:31 | NUR ---
VOICE NETWORK ENGINEER OPENING NOTE RECEIVED PT RESTING IN BED. ON CPAP FOR SLEEP CURRENTLY. NO SOB OR S/S OF RESPIRATORY DISTRESS. BREATHING EVEN AND UNLABORED. ON EXTERNAL ELEMENTARY INSTRUCTIONAL COACH READING A FIB 84 BPM. IV ACCESS L ARM 18G, INTACT AND PATENT. SAFETY PRECAUTIONS IN PLACE. BED IN LOWEST LOCKED POSITION, HOB ELEVATED, SIDE RAILS UP X3, AND CALL LIGHT AND TABLE WITHIN REACH. ALL NEEDS MET AT THIS TIME.
[2022-05-12 20:00] VITALS: BP 132/82
--- NOTE | 2022-05-12 21:15 | NUR ---
RN NOTE PT COMPLAINED OF MILD PAIN 3/10 OF BILATERAL ANKLES. ADMINISTERED TYLENOL 650 MG FOR MILD PAIN ORDERED. MADE COMFORTABLE IN BED. ALL NEEDS MET AT THIS TIME.
[2022-05-13] VITALS: BP 126/95
[2022-05-13 04:00] VITALS: BP 117/73
[2022-05-13] MEDS: ACETAMINOPHEN 325 MG TABLET PO PRN (04:26)
[2022-05-13 06:26] LABS: BASOPHILS # (AUTO) 0.1 K/uL (0.0-0.2); BASOPHILS % (AUTO) 1.2 % (0.0-2.0); EOSINOPHILS % (AUTO) 4.3 % (0.0-6.0); HEMATOCRIT 40 % (39-51); HEMOGLOBIN 13.8 g/dL (13.5-17.5); LYMPHOCYTES # (AUTO) 1.2 K/uL (0.8-4.8); LYMPHOCYTES % (AUTO) 21.3 % (20.0-44.0); MEAN CORPUSCULAR HGB CONC 35 g/dl (31.0-36.0); MEAN CORPUSCULAR VOLUME 108 fL (80-96); MONOCYTES # (AUTO) 0.8 K/uL (0.1-1.30); MONOCYTES % (AUTO) 14.2 % (2.0-12.0); NEUTROPHILS # (AUTO) 3.3 K/uL (1.8-8.9); PLATELET COUNT (AUTO) 112 K/uL (150-450); RED BLOOD CELL COUNT(AUTO) 3.71 MIL/uL (4.5-6.0); WHITE BLOOD COUNT (AUTO) 5.6 K/uL (4.3-11.0)
--- NOTE | 2022-05-13 07:01 | NUR ---
RESOURCE RECOVERY SPECIALIST CLOSING NOTE PT RESTING IN BED. PT ON O2 @ 2LPM VIA NC, TOLERATING WELL. NO SOB OR S/S OF RESPIRATORY DISTRESS. BREATHING EVEN AND UNLABORED. ON EXTERNAL ECOMMERCE MARKETING MANAGER READING V PACING 74 BPM. IV ACCESS L ARM 18G, INTACT AND PATENT. ALL DUE MEDS GIVEN ORDERED. KEPT CLEAN AND DRY. SAFETY PRECAUTIONS IN PLACE AT ALL TIMES. BED IN LOWEST LOCKED POSITION, HOB ELEVATED, SIDE RAILS UP X3, AND CALL LIGHT AND TABLE WITHIN REACH. ALL NEEDS MET AT THIS TIME AND WILL ENDORSE TO ONCOMING NURSE FOR FABIAN.
[2022-05-13 07:15] LABS: BILIRUBIN,DIRECT 3.2 mg/dL (0.0-0.2); BILIRUBIN,TOTAL 4.6 mg/dL (0.2-1.0); CALCIUM, SERUM 8.9 mg/dL (8.5-10.1); CREATININE 1.5 mg/dL (0.6-1.3); MAGNESIUM 2.1 mg/dL (1.8-2.4); PHOSPHORUS 4.1 mg/dL (2.5-4.9); POTASSIUM 3.4 mmol/L (3.5-5.1)
--- NOTE | 2022-05-13 07:26 | NUR ---
CONFERENCE SERVICES COORDINATOR OPENING NOTE RECEIVED PT ASLEEP IN BED. ON CPAP WITH NO SOB OR S/S OF RESPIRATORY DISTRESS. IV ACCESS L ARM 18G, INTACT AND PATENT. NO COMPLAINTS OF PAIN AT THIS TIME. SAFETY PRECAUTIONS IN PLACE. BED IN LOWEST LOCKED POSITION, HOB ELEVATED, SIDE RAILS UP X3, AND CALL LIGHT WITHIN REACH. WILL CONTINUE TO MONITOR.
[2022-05-13 08:00] VITALS: BP 115/76
[2022-05-13] MEDS: THIAMINE HCL 100 MG TABLET PO SCH (08:32)
[2022-05-13] MEDS: LOSARTAN POTASSIUM 25 MG TABLET PO SCH (08:32)
[2022-05-13] MEDS: FOLIC ACID 1 MG TABLET PO SCH (08:33)
[2022-05-13] MEDS: CHLORDIAZEPOXIDE HCL 25 MG CAPSULE PO SCH ×2 (08:33→17:19)
[2022-05-13] MEDS: SPIRONOLACTONE 25 MG TABLET PO SCH (08:33)
[2022-05-13] MEDS: CARVEDILOL 12.5 MG TABLET PO SCH ×2 (08:33→21:28)
[2022-05-13] MEDS: APIXABAN 5 MG TABLET PO SCH ×2 (08:34→17:20)
[2022-05-13] MEDS: AMIODARONE HCL 200 MG TABLET PO SCH (08:35)
[2022-05-13] MEDS ORDERED: POTASSIUM CHLORIDE 20 MEQ TAB.PRT.SR PO ONE (09:00)
--- NOTE | 2022-05-13 09:53 | NUR ---
EMT/DISPATCHER NOTE PT COMPLAINED OF SHARP PAIN AND BURNING WITH IV FLUSH. IV SITE APPEARS RED AND BLOODY. REMOVED IV ACCESS.
[2022-05-13 12:00] VITALS: BP 116/75
[2022-05-13] MEDS ORDERED: LEVETIRACETAM (500MG) 1,000 MG in IV NS 0.9% 100 ML IV ONE (14:00)
[2022-05-13 16:00] VITALS: BP 104/75
--- NOTE | 2022-05-13 19:19 | NUR ---
CERTIFIED PERSONAL TRAINER CLOSING NOTE PT RESTING IN BED. ON O2 @ 2LPM VIA NC WITH NO SOB OR S/S OF RESPIRATORY DISTRESS. BREATHING EVEN AND UNLABORED. PT HAS NOC CPAP. EXTERNAL BANK CLERK READING V PACING 87 BPM. IV ACCESS R ARM 18G, INTACT AND PATENT. SEIZURE PRECAUTIONS IN PLACE. ALL SAFETY PRECAUTIONS IN PLACE WITH BED IN LOWEST LOCKED POSITION, HOB ELEVATED, SIDE RAILS UP X3, AND CALL LIGHT AND TABLE WITHIN REACH. WILL ENDORSE TO ONCOMING NURSE FOR FABIAN.
[2022-05-13 20:00] VITALS: BP 104/75
--- NOTE | 2022-05-13 20:30 | NUR ---
noc rn opening note received patient in bed a/ox4. no s/s of apparent distress on 2lpm of O2 via nc. denies pain at this time. reading Vpacing, patient has LCW pacemaker. IV ACCESS on right hand #18g on saline lock. neuro check done, PERRLA noted, pedal pulse faint to palpate, sensation intact. patient able to follow commands. safety in place-- bed in lowest locked position, side rails up X3, call light within reach. will continue with the plan of care for patient and monitor for seizures.
[2022-05-13] MEDS: LEVETIRACETAM (250 MG) 250 MG TABLET PO SCH (21:28)
[2022-05-14] VITALS: BP 128/55
[2022-05-14] MEDS: ACETAMINOPHEN 325 MG TABLET PO PRN (03:50)
--- NOTE | 2022-05-14 03:55 | NUR ---
noc rn note patient c/o 8/10 pain on his left knee shooting to his foot. Asking for anything stronger than Tylenol. messaged Hospitalist Donovan Delacruz. awaiting order.
--- NOTE | 2022-05-14 03:57 | NUR ---
noc rn note patient request Tylenol for now for pain. Given as ordered PRN.
[2022-05-14 04:00] VITALS: BP 144/84
[2022-05-14] MEDS ORDERED: HYDROCODONE/APAP 5/325MG TABLET PO ONE (04:00)
--- NOTE | 2022-05-14 05:34 | NUR ---
noc rn note Hospitalist Donovan Delacruz ordered [place]-5 ONCE. order carried out. will re-assess.
[2022-05-14 06:22] LABS: EOSINOPHILS % (AUTO) 3.4 % (0.0-6.0); HEMATOCRIT 39 % (39-51); HEMOGLOBIN 13.3 g/dL (13.5-17.5); LYMPHOCYTES # (AUTO) 0.6 K/uL (0.8-4.8); LYMPHOCYTES % (AUTO) 13.6 % (20.0-44.0); MEAN CORPUSCULAR HGB CONC 35 g/dl (31.0-36.0); MEAN CORPUSCULAR VOLUME 109 fL (80-96); MONOCYTES # (AUTO) 0.6 K/uL (0.1-1.30); MONOCYTES % (AUTO) 13.5 % (2.0-12.0); NEUTROPHILS % (AUTO) 68.5 % (43.0-81.0); PLATELET COUNT (AUTO) 116 K/uL (150-450); RED BLOOD CELL COUNT(AUTO) 3.55 MIL/uL (4.5-6.0); WHITE BLOOD COUNT (AUTO) 4.4 K/uL (4.3-11.0)
[2022-05-14 06:48] LABS: CALCIUM, SERUM 8.7 mg/dL (8.5-10.1); CREATININE 1.2 mg/dL (0.6-1.3); POTASSIUM 3.8 mmol/L (3.5-5.1)
--- NOTE | 2022-05-14 06:53 | NUR ---
noc rn closing patient in bed with eyes closed, a/ox4, easy to arouse. no s/s of apparent distress still on his c-pap. no c/o pain at this time. all needs attended. reading V-pacing 76 bpm. all scheduled meds administered. IV access on the right hand #18g saline lock. safety kept in place the whole shift. will endorse to morning shift rn for continuity of patient care.
[2022-05-14 08:00] VITALS: BP 147/97
[2022-05-14] MEDS: AMIODARONE HCL 200 MG TABLET PO SCH (09:50)
[2022-05-14] MEDS: CARVEDILOL 12.5 MG TABLET PO SCH ×2 (09:51→21:15)
[2022-05-14] MEDS: FOLIC ACID 1 MG TABLET PO SCH (09:52)
[2022-05-14] MEDS: LEVETIRACETAM (250 MG) 250 MG TABLET PO SCH ×2 (09:52→21:16)
[2022-05-14] MEDS: SPIRONOLACTONE 25 MG TABLET PO SCH (09:52)
[2022-05-14] MEDS: LOSARTAN POTASSIUM 25 MG TABLET PO SCH (09:52)
[2022-05-14] MEDS: THIAMINE HCL 100 MG TABLET PO SCH (09:53)
[2022-05-14] MEDS: APIXABAN 5 MG TABLET PO SCH ×2 (09:54→18:09)
--- NOTE | 2022-05-14 11:24 | NUR ---
WOUND CARE CONSULT: PT SEEN FOR DRY SCABS ON ARMS. PT STATES THAT HE SCRATCHES HIS ARMS AT NIGHT. MOISTURIZER RECOMMENDED. DISCUSSED WITH NURSING STAFF. WILL SEE PRN.
[2022-05-14 12:00] VITALS: BP 110/71
[2022-05-14 16:00] VITALS: BP 154/83
[2022-05-14] MEDS ORDERED: CHLORDIAZEPOXIDE HCL 25 MG CAPSULE PO SCH (17:00)
[2022-05-14 18:11] LABS: ABG BASE EXCESS 4.7 mmol/L; ABG OXYGEN SATURATION 96.4 % (92.0-98.5); ABG PCO2 45.5 mmHg (35.0-45.0); ABG PH 7.435 (7.350-7.450); ABG PO2 79.5 mmHg (75.0-100.0); AaDO2 15.7 mmHg; COHb 1.7 % (0.5-1.5); MetHb 0.4 % (0.0-1.5); O2Hb 94.4 % (94.0-97.0); SITE, ABG Right Radial; VENT MODE, BG room air
--- NOTE | 2022-05-14 18:11 | NUR ---
RN NOTE SCHEDULED LIBRIUM 10MG CAPSULE TAKEN OUT OF PYXIS, DOSE WAS INCORRECT, COULD NOT RETURN MEDICATION INTO PYXIS DUE TO INCORRECT DOSAGE. NOTIFIED PHARMACY, PHARMACIST INSTRUCTED TO WASTE THE MEDICATION WITH ANOTHER RN TO WITNESS WASTE. PHARMACIST CORRECTED DOSAGE FOR 10MG, NOT 25MG.
[2022-05-14] MEDS: CHLORDIAZEPOXIDE HCL 5 MG CAPSULE PO SCH (18:14)
--- NOTE | 2022-05-14 18:27 | NUR ---
RN NOTE URINALYSIS COLLECTED, NOTIFIED LAB AT THIS TIME.
--- NOTE | 2022-05-14 19:40 | NUR ---
RN OPENING NOTES: RECEIVED PT IN BED, AWAKE, ALERT/ORIENTED X4 AND VERBALLY RESPONSIVE. ON O2 @ 2L/M VIA N/C AND PT TOLERATED WELL. BREATHING EVEN AND UNLABORED. PT IS ON NOC CPAP. IV ACCESS RT HAND#18G INTACT AND PATENT. NO S/S OF INFILTRATIONS. NO C/O PAIN OR DISCOMFORT. NO ACUTE DISTRESS. PT IS AMBULATORY. ABLE TO USE URINAL. ALL SAFETY MEASURES IN PLACE, BED IN LOWEST POSITION AND LOCKED, SIDE RAILS UP X3, PLACE CALL LIGHT WITHIN REACH. WILL CONTINUE TO MONITOR
--- NOTE | 2022-05-14 19:47 | NUR ---
ACCOUNTING PRACTICE MANAGER CLOSING NOTE PT RESTING IN BED. ON O2 @ 3LPM VIA NC WITH NO SOB OR S/S OF RESPIRATORY DISTRESS. BREATHING EVEN AND UNLABORED. PT HAS NOC CPAP. EXTERNAL PSYCHOLOGIST PRIVATE PRACTICE READING V PACING 85 BPM. IV ACCESS R ARM 18G, INTACT AND PATENT. ALL SAFETY PRECAUTIONS IN PLACE WITH BED IN LOWEST LOCKED POSITION, HOB ELEVATED, SIDE RAILS UP X3, AND CALL LIGHT AND TABLE WITHIN REACH. WILL ENDORSE TO ONCOMING NURSE FOR FABIAN.
[2022-05-14 20:00] VITALS: BP 128/79
[2022-05-14 22:45] LABS: BILIRUBIN,URINE 2+ (NEGATIVE); COLOR,URINE YELLOW (YELLOW); LEUKOCYTE ESTERASE ,URINE NEGATIVE (NEGATIVE); NITRITE, URINE POSITIVE (NEGATIVE); PH,URINE 6.5 (5.0-8.0); PROTEIN,URINE NEGATIVE (NEGATIVE); UGLUCOSE NEGATIVE (NEGATIVE); UROBILINOGEN,URINE >=8.0 EU/dL (0.2)
[2022-05-15] VITALS: BP 134/76
[2022-05-15 04:00] VITALS: BP 132/91
--- NOTE | 2022-05-15 06:48 | NUR ---
RN CLOSING NOTES: PT IN BED, AWAKE, ALERT/ORIENTED X4 AND VERBALLY RESPONSIVE. ON O2 @ 2L/M VIA N/C AND PT TOLERATED WELL. O2 SAT 96%. BREATHING EVEN AND UNLABORED. IV ACCESS RT HAND#18G INTACT AND PATENT. NO S/S OF INFILTRATIONS. NO C/O PAIN OR DISCOMFORT. NO ACUTE DISTRESS.AMBULATORY, ABLE TO GO TO RESTROOM. ALL DUE MEDS GIVEN ORDERED. ALL SAFETY MEASURES IN PLACE, BED IN LOWEST POSITION AND LOCKED, SIDE RAILS UP X3, PLACE CALL LIGHT WITHIN REACH. WILL ENDORSE TO MORNING SHIFT NURSE.
--- NOTE | 2022-05-15 07:30 | NUR ---
SHOE ASSOCIATE NOTES: PT IN BED, AWAKE, ALERT/ORIENTED X4 AND VERBALLY RESPONSIVE. ON O2 @ 2L/M VIA N/C NO SOB NOTED AT THIS TIME, BREATHING EVEN AND UNLABORED. IV ACCESS RT HAND#18G INTACT AND PATENT. NO C/O PAIN OR DISCOMFORT. NO ACUTE DISTRESS.. ALL SAFETY MEASURES IN PLACE, BED IN LOWEST POSITION AND LOCKED, SIDE RAILS UP X3, PLACE CALL LIGHT WITHIN REACH. WILL CONT TO MONITOR
[2022-05-15 08:00] VITALS: BP 143/68
[2022-05-15] MEDS: CHLORDIAZEPOXIDE HCL 5 MG CAPSULE PO SCH (08:55)
[2022-05-15] MEDS: SPIRONOLACTONE 25 MG TABLET PO SCH (08:56)
[2022-05-15] MEDS: APIXABAN 5 MG TABLET PO SCH (08:56)
[2022-05-15] MEDS: LEVETIRACETAM (250 MG) 250 MG TABLET PO SCH (08:57)
[2022-05-15] MEDS: FOLIC ACID 1 MG TABLET PO SCH (08:57)
[2022-05-15] MEDS: LOSARTAN POTASSIUM 25 MG TABLET PO SCH (08:58)
[2022-05-15] MEDS: CARVEDILOL 12.5 MG TABLET PO SCH (08:58)
[2022-05-15 08:59] VITALS: BP 143/68
[2022-05-15] MEDS: AMIODARONE HCL 200 MG TABLET PO SCH (08:59)
[2022-05-15] MEDS: THIAMINE HCL 100 MG TABLET PO SCH (08:59)
--- NOTE | 2022-05-15 09:00 | NUR ---
WIND ENERGY PROJECT MANAGER NOTE PER DR VAL BARAHONA TO DISCHARGE HOME
[2022-05-15 09:02] LABS: BASOPHILS # (AUTO) 0.1 K/uL (0.0-0.2); BASOPHILS % (AUTO) 1.3 % (0.0-2.0); EOSINOPHILS % (AUTO) 4.5 % (0.0-6.0); HEMATOCRIT 41 % (39-51); LYMPHOCYTES % (AUTO) 20.1 % (20.0-44.0); MEAN CORPUSCULAR HGB CONC 34 g/dl (31.0-36.0); MEAN CORPUSCULAR VOLUME 109 fL (80-96); MONOCYTES # (AUTO) 0.8 K/uL (0.1-1.30); MONOCYTES % (AUTO) 16.7 % (2.0-12.0); NEUTROPHILS # (AUTO) 2.9 K/uL (1.8-8.9); NEUTROPHILS % (AUTO) 57.4 % (43.0-81.0); PLATELET COUNT (AUTO) 155 K/uL (150-450); RED BLOOD CELL COUNT(AUTO) 3.73 MIL/uL (4.5-6.0); WHITE BLOOD COUNT (AUTO) 5.1 K/uL (4.3-11.0)
[2022-05-15 09:07] LABS: CREATININE 1.1 mg/dL (0.6-1.3); POTASSIUM 3.9 mmol/L (3.5-5.1)
[2022-05-15] MEDS ORDERED: LEVE250T2 PO (09:31)
[2022-05-15] MEDS ORDERED: Folic Acid PO (09:31)
[2022-05-15] MEDS ORDERED: Thiamine HCL PO (09:31)
--- NOTE | 2022-05-15 10:37 | NUR ---
FITNESS SALES ASSOCIATE NOTE SPOKE WITH SOUND EFFECTS MANAGER ABOUT HOME HEALTH STATED THAT WILL CHECK IT OUT ,SPOKE WITH GREGORY,ALSO ON SATURATION 96% PATIENT ABLE TO AMBULATE WITH PT WITH STAND BY ASSISTANCE, NO SOB NOTED Addendum: 05/15/22 at 1233 by MAG NOLAN RN saturation on ra 96%
--- NOTE | 2022-05-15 10:39 | NUR ---
ELIGIBILITY CLERK NOTE SPOKE WITH MATHEMATICS DEPARTMENT CHAIR CLAUDETTE NOTIFIED THAT PATIENT BROTHER WANTS ADVANCE DIRECTIVE FORMS ,WANTS TO BE IN CHARGE FOR HIM ,STATED THAT WILL BRING PAPER WORK LATER ON , PATENT BROTHER INFORMED
--- NOTE | 2022-05-15 11:43 | NUR ---
telephone plant power operator note discharge instruction given , understood ,tele remove ,hl on rt hand removed ,no bleeding noted , instructed to f\u with primary care doctor and neurologist and take new px as ordered, explained how to take and possible side effects, also explained that per binder caser home health arranged, phone number given also patient brother and patient dont wait for dialysis social worker to [place]. phone number given to brother, belonging checked by sunil hatch to lobby onw\c with brother , left hospital with stable conditon
== END 2022-05-15 12:46 | disposition home health service (06) | DRG 53 ==
LOC: ER 06:23 → TELE1 10:00
PROVIDERS: ADMIT Internal Medicine; ATTEND Internal Medicine
PROC: 5A09357 Assistance with Respiratory Ventilation, Less than 24 Consecutive Hours, Continuous Positive Airway Pressure (ICD-10-PCS; principal; 2022-05-11)
DX: R56.9 Unspecified convulsions (principal); N17.0 Acute kidney failure with tubular necrosis; I42.9 Cardiomyopathy, unspecified; E87.1 Hypo-osmolality and hyponatremia; I47.1 Supraventricular tachycardia; E88.09 Other disorders of plasma-protein metabolism, not elsewhere classified; I50.9 Heart failure, unspecified; I11.0 Hypertensive heart disease with heart failure; I48.0 Paroxysmal atrial fibrillation; Z20.822 Contact with and (suspected) exposure to COVID-19; Z79.01 Long term (current) use of anticoagulants; Z79.899 Other long term (current) drug therapy; Z95.810 Presence of automatic (implantable) cardiac defibrillator; Z86.79 Personal history of other diseases of the circulatory system; K70.10 Alcoholic hepatitis without ascites; Y90.0 Blood alcohol level of less than 20 mg/100 ml; E66.01 Morbid (severe) obesity due to excess calories; Z68.31 Body mass index [BMI] 31.0-31.9, adult; E87.6 Hypokalemia; R74.01 Elevation of levels of liver transaminase levels; G47.33 Obstructive sleep apnea (adult) (pediatric); J98.11 Atelectasis; K76.0 Fatty (change of) liver, not elsewhere classified; M51.37 Other intervertebral disc degeneration, lumbosacral region; Z87.898 Personal history of other specified conditions; I49.8 Other specified cardiac arrhythmias; M79.604 Pain in right leg; M79.605 Pain in left leg; W18.30XA Fall on same level, unspecified, initial encounter; F10.10 Alcohol abuse, uncomplicated; Y92.009 Unspecified place in unspecified non-institutional (private) residence as the place of occurrence of the external cause
CPT/HCPCS: 36415; 36600; 70450-TC; 71045-TC; 72131-TC; 76770-TC; 80048-TC; 80076-TC; 82570-TC; 83735-TC; 83880; 84100-TC; 84300-TC; 84484-TC; 85025-TC; 85730-TC; 87081-TC; 93307-TC; 94799-TC; 95819-TC; 97116-TC; 97530-TC; A4223; C9803; G0378; G0480; J1953; J2060; J3480; J3490; J7030; J7040; J7050

== ENCOUNTER 2022-06-27 09:32 | Emergency (ER) | payer MEDICAID ==
[~2022-06-27] VITALS: Ht 172.7 cm; Wt 145.1 kg
[~2022-06-27 09:32] MED LIST changes: -AMIO200T7 PO; +Folic Acid PO; +LEVE250T2 PO; +Thiamine HCL PO
--- NOTE | 2022-06-27 09:56 | NUR ---
xray at bedside
[2022-06-27] MEDS ORDERED: KETOROLAC TROMETHAMINE INJ 60 MG/2 ML VIAL IM ONE ×2 (09:57→10:00)
[2022-06-27] MEDS ORDERED: LORAZEPAM INJ 2 MG/ML VIAL ONE (10:41)
--- NOTE | 2022-06-27 10:45 | NUR ---
patient appears to have a seizure. Dr. Orta ordered 2mg ativan be given
[2022-06-27] MEDS ORDERED: LEVETIRACETAM (500MG) 500 MG in IV NS 0.9% 100 ML IV SCH (11:00)
[2022-06-27 11:28] LABS: BASOPHILS # (AUTO) 0.1 K/uL (0.0-0.2); BASOPHILS % (AUTO) 0.9 % (0.0-2.0); HEMATOCRIT 43 % (39-51); HEMOGLOBIN 14.3 g/dL (13.5-17.5); LYMPHOCYTES # (AUTO) 2.7 K/uL (0.8-4.8); LYMPHOCYTES % (AUTO) 24.2 % (20.0-44.0); MEAN CORPUSCULAR HGB CONC 33 g/dl (31.0-36.0); MEAN CORPUSCULAR VOLUME 110 fL (80-96); MONOCYTES # (AUTO) 1.8 K/uL (0.1-1.30); MONOCYTES % (AUTO) 16.3 % (2.0-12.0); NEUTROPHILS # (AUTO) 6.4 K/uL (1.8-8.9); NEUTROPHILS % (AUTO) 57.6 % (43.0-81.0); PLATELET COUNT (AUTO) 218 K/uL (150-450); RED BLOOD CELL COUNT(AUTO) 3.92 MIL/uL (4.5-6.0); WHITE BLOOD COUNT (AUTO) 11.1 K/uL (4.3-11.0)
[2022-06-27 11:29] LABS: ALANINE AMINOTRANSFERASE 51 U/L (12-78); ALBUMIN 3.5 g/dL (3.4-5.0); ALKALINE PHOSPHATASE 101 U/L (46-116); ASPARTATE AMINOTRANSFERASE 79 U/L (15-37); BILIRUBIN,DIRECT 1.2 mg/dL (0.0-0.2); BILIRUBIN,TOTAL 2.8 mg/dL (0.2-1.0); CARBON DIOXIDE 24 mmol/L (21-32); CHLORIDE 91 mmol/L (98-107); CREATININE 1.7 mg/dL (0.6-1.3); GLUCOSE 152 mg/dL (74-106); TOTAL PROTEIN, SERUM 8.1 g/dL (6.4-8.2); UREA NITROGEN, BLOOD 12 mg/dL (7-18)
[2022-06-27 11:42] LABS: SODIUM SERUM 135 mmol/L (136-145)
[2022-06-27 11:44] LABS: POTASSIUM 2.8 mmol/L (3.5-5.1)
[2022-06-27 11:45] LABS: ALCOHOL, BLOOD < 3 mg/dL (0-0)
--- NOTE | 2022-06-27 12:00 | NUR ---
addendum: KEPPRA IV STARTED AT 11:18 Stop time- 11:38
--- NOTE | 2022-06-27 13:00 | NUR ---
COVID Swab collected, sent to lab.
--- NOTE | 2022-06-27 13:06 | NUR ---
MRSA Swab collected, sent to lab.
--- NOTE | 2022-06-27 13:30 | NUR ---
patient taken to ct via [facility]
[2022-06-27] MEDS ORDERED: ACETAMINOPHEN ES 500 MG TABLET PO ONE (14:00)
[2022-06-27] MEDS ORDERED: ACETAMINOPHEN ES 500 MG TABLET ONE (14:17)
[2022-06-27] MEDS ORDERED: POTASSIUM CHLORIDE 20 MEQ TAB.PRT.SR PO ONE ×2 (14:17→14:30)
--- NOTE | 2022-06-27 14:22 | NUR ---
DR. CAIN FROM [facility] SPEAKING WITH DR. WISDOM.
--- NOTE | 2022-06-27 14:37 | NUR ---
call haritha # for nurse report
--- NOTE | 2022-06-27 14:42 | NUR ---
PT ACCEPTED TO [facility] UNDER DR. CAIN ROOM [phone] PLEASE CALL [phone] FOR REPORT AUTH FOR TRANSPORT IS: [id number]
--- NOTE | 2022-06-27 14:47 | NUR ---
CALLED [facility] FOR TRANSPORT ETA 60 MINS.
--- NOTE | 2022-06-27 14:55 | NUR ---
called [facility] for report. was told by the RN, that she was told by their charge that they cannot accept patient or report before 6pm (1800). She said her case assistant will call to "fix things" and to call at a later time for report
--- NOTE | 2022-06-27 14:59 | NUR ---
CHANGED TRANSPORT TIME TO 1800
--- NOTE | 2022-06-27 17:22 | NUR ---
CALLED [facility] 3 TIMES IN ORDER TO GIVE REPORT. NO ANSWER. UNABLE TO LEAVE VOICEMAIL.
--- NOTE | 2022-06-27 17:41 | NUR ---
report given to JOSSUE Leon for continuation of care. Awaiting transport
--- NOTE | 2022-06-27 18:30 | NUR ---
[facility] transport at bedside to seed cone picker pt, report given to Derek unit #[id number]. PAtient agrees with Plan of Care, AOx4.
[2022-06-27 18:41] VITALS: BP 120/72
[2022-06-28] MEDS ORDERED: LORAZEPAM INJ 2 MG/ML VIAL IV ONE (10:30)
== END 2022-06-27 18:43 | disposition hospice, inpatient (51) ==
LOC: ER 09:35
DX: S99.912A Unspecified injury of left ankle, initial encounter (principal); R56.9 Unspecified convulsions; E87.6 Hypokalemia; K70.9 Alcoholic liver disease, unspecified; F10.239 Alcohol dependence with withdrawal, unspecified; I10 Essential (primary) hypertension; I48.91 Unspecified atrial fibrillation; Z20.822 Contact with and (suspected) exposure to COVID-19; Z79.899 Other long term (current) drug therapy; Y90.0 Blood alcohol level of less than 20 mg/100 ml; X58.XXXA Exposure to other specified factors, initial encounter; Y93.89 Activity, other specified; Y92.89 Other specified places as the place of occurrence of the external cause; Y99.8 Other external cause status
CPT/HCPCS: 99285; 96372; 96365; 71045; 73610; 70450; 85025; 80048; 80076; 36415; 85730; 87081; 87426; 80320; J1885; J7030; J7040; J1953; C9803; G0480; J2060

== ENCOUNTER 2022-08-02 01:50 | Emergency (ER) | payer MEDICAID ==
[~2022-08-02] VITALS: Ht 177.8 cm; Wt 153.5 kg
[2022-08-02] MEDS ORDERED: LEVETIRACETAM (500MG) 500 MG in IV NS 0.9% 100 ML IV ONE (02:00)
[2022-08-02] MEDS ORDERED: ASPIRIN 325 MG TABLET PO ONE (02:30)
[2022-08-02] MEDS ORDERED: NITROGLYCERIN 0.4 MG/TAB BOTTLE SL ONE (02:30)
[2022-08-02 02:35] LABS: BASOPHILS # (AUTO) 0.1 K/uL (0.0-0.2); BASOPHILS % (AUTO) 0.8 % (0.0-2.0); EOSINOPHILS % (AUTO) 2.7 % (0.0-6.0); HEMATOCRIT 39 % (39-51); HEMOGLOBIN 13.6 g/dL (13.5-17.5); LYMPHOCYTES # (AUTO) 1.8 K/uL (0.8-4.8); LYMPHOCYTES % (AUTO) 24.2 % (20.0-44.0); MEAN CORPUSCULAR HGB CONC 35 g/dl (31.0-36.0); MEAN CORPUSCULAR VOLUME 102 fL (80-96); MONOCYTES # (AUTO) 0.8 K/uL (0.1-1.30); MONOCYTES % (AUTO) 10.2 % (2.0-12.0); NEUTROPHILS # (AUTO) 4.7 K/uL (1.8-8.9); NEUTROPHILS % (AUTO) 62.1 % (43.0-81.0); PLATELET COUNT (AUTO) 144 K/uL (150-450); RED BLOOD CELL COUNT(AUTO) 3.86 MIL/uL (4.5-6.0); WHITE BLOOD COUNT (AUTO) 7.5 K/uL (4.3-11.0)
[2022-08-02] MEDS ORDERED: NITROGLYCERIN 0.4 MG/TAB BOTTLE ONE (02:36)
[2022-08-02] MEDS ORDERED: ASPIRIN 325 MG TABLET ONE (02:36)
[2022-08-02 02:45] LABS: POTASSIUM 3.6 mmol/L (3.5-5.1)
[2022-08-02 02:51] LABS: ALBUMIN 3.4 g/dL (3.4-5.0); BILIRUBIN,DIRECT 0.8 mg/dL (0.0-0.2)
[2022-08-02] MEDS ORDERED: CHLORDIAZEPOXIDE HCL 25 MG CAPSULE ONE (04:35)
[2022-08-02] MEDS ORDERED: CHLORDIAZEPOXIDE HCL 25 MG CAPSULE PO ONE (05:00)
[2022-08-02] MEDS ORDERED: CHLO25CA22 PO (05:01)
[2022-08-02] MEDS ORDERED: ONDANSETRON HCL/PF 4 MG/2 ML VIAL ONE (05:15)
[2022-08-02] MEDS ORDERED: ONDANSETRON HCL/PF 4 MG/2 ML VIAL IV ONE (05:30)
[2022-08-02 05:52] VITALS: BP 138/85
== END 2022-08-02 05:53 | disposition home or self-care (01) ==
LOC: ER 01:55
DX: R07.9 Chest pain, unspecified (principal); K70.9 Alcoholic liver disease, unspecified; F10.229 Alcohol dependence with intoxication, unspecified; F10.239 Alcohol dependence with withdrawal, unspecified; I10 Essential (primary) hypertension; I48.91 Unspecified atrial fibrillation; Z60.2 Problems related to living alone; Z79.899 Other long term (current) drug therapy; Y90.2 Blood alcohol level of 40-59 mg/100 ml
CPT/HCPCS: 99285; 96374; 93005; 71045; 85025; 80048; 80076; 36415; 84484 ×2; 85730; 83880; 82962; 80320; 80307; J2405; J7030; G0480; J1953

== ENCOUNTER 2022-09-19 19:32 | Emergency (ER) | payer MEDICAID ==
[~2022-09-19] VITALS: Ht 180.3 cm; Wt 145.1 kg
[~2022-09-19 19:32] MED LIST changes: +CHLO25CA22 PO
--- NOTE | 2022-09-19 20:40 | NUR ---
sob and Lt ankle swelling x AM today.
--- NOTE | 2022-09-19 20:54 | NUR ---
US TECH AT PT'S BEDSIDE
--- NOTE | 2022-09-19 21:00 | NUR ---
PHLEB AT BEDSIDE, BLOOD DRAWN AND SENT TO LAB
[2022-09-19] MEDS ORDERED: HYDROCODONE/APAP 5/325MG TABLET ONE (21:22)
[2022-09-19 21:23] LABS: BASOPHILS # (AUTO) 0.1 K/uL (0.0-0.2); BASOPHILS % (AUTO) 0.9 % (0.0-2.0); EOSINOPHILS % (AUTO) 1.3 % (0.0-6.0); HEMATOCRIT 39 % (39-51); HEMOGLOBIN 13.4 g/dL (13.5-17.5); LYMPHOCYTES # (AUTO) 1.1 K/uL (0.8-4.8); LYMPHOCYTES % (AUTO) 16.5 % (20.0-44.0); MEAN CORPUSCULAR HGB CONC 35 g/dl (31.0-36.0); MEAN CORPUSCULAR VOLUME 98 fL (80-96); NEUTROPHILS # (AUTO) 4.3 K/uL (1.8-8.9); NEUTROPHILS % (AUTO) 66.3 % (43.0-81.0); PLATELET COUNT (AUTO) 156 K/uL (150-450); WHITE BLOOD COUNT (AUTO) 6.5 K/uL (4.3-11.0)
[2022-09-19] MEDS ORDERED: HYDROCODONE/APAP 5/325MG TABLET PO ONE (21:30)
--- NOTE | 2022-09-19 21:35 | NUR ---
IN FILE OPERATOR AT BEDSIDE
--- NOTE | 2022-09-19 21:44 | NUR ---
PATIENT TAKEN TO CT VIA [facility]
[2022-09-19 21:50] LABS: CARBON DIOXIDE 29 mmol/L (21-32); CHLORIDE 95 mmol/L (98-107); CREATININE 0.8 mg/dL (0.6-1.3); GLUCOSE 116 mg/dL (74-106); POTASSIUM 3.7 mmol/L (3.5-5.1); SODIUM SERUM 132 mmol/L (136-145); UREA NITROGEN, BLOOD 9 mg/dL (7-18)
[2022-09-19 22:02] LABS: ALANINE AMINOTRANSFERASE 36 U/L (12-78); ALBUMIN 3.1 g/dL (3.4-5.0); ALKALINE PHOSPHATASE 101 U/L (46-116); ASPARTATE AMINOTRANSFERASE 65 U/L (15-37); BILIRUBIN,DIRECT 0.4 mg/dL (0.0-0.2); BILIRUBIN,TOTAL 1.5 mg/dL (0.2-1.0); TOTAL PROTEIN, SERUM 7.7 g/dL (6.4-8.2)
--- NOTE | 2022-09-19 22:30 | NUR ---
Patient discharged to home in stable condition. Written and verbal after care instructions given. Patient verbalizes understanding of instruction.
[2022-09-19 22:34] VITALS: BP 149/93; TEMP 98.1; O2SAT 98
== END 2022-09-19 22:34 | disposition home or self-care (01) ==
LOC: ER 19:47
DX: R60.0 Localized edema (principal); M54.6 Pain in thoracic spine; E66.9 Obesity, unspecified; I11.0 Hypertensive heart disease with heart failure; I50.9 Heart failure, unspecified; I48.91 Unspecified atrial fibrillation; Z68.41 Body mass index [BMI] 40.0-44.9, adult; Z60.2 Problems related to living alone; Z79.899 Other long term (current) drug therapy
CPT/HCPCS: 36415; 71045-TC; 72128-TC; 80048-TC; 80076-TC; 83880; 84484-TC; 85025-TC; 85730-TC; 93971-TC; G0480